=== PATIENT | male | born 2000 | race Caucasian/White ===

== ENCOUNTER → 2024-01-01 06:44 | Outpatient (REF) | payer OTHER, SELFPAY | LOC: MRI 06:44 | PROVIDERS: ATTENDING PHYSICIAN Orthopaedic Surgery; FAMILY PHYSICIAN Family Medicine | DX: M25.562 Pain in left knee (principal); Z98.890 Other specified postprocedural states | CPT/HCPCS: 73721 ==

== ENCOUNTER 2024-02-17 18:01 | Emergency (ER) | payer OTHER, SELFPAY ==
[2024-02-17 18:09] VITALS: BP 135/91
[2024-02-17 18:29] LABS: % Basophils 0.3 % (0-2); % Eosinophils 0.4 % (0-6); % Immature Granulocytes 0.5 % (0-0.5); % Lymphocytes 13.1 % (20.5-51.1); % Monocytes 5.1 % (1.7-9.3); % Neutrophils 80.6 % (42.2-75.2); Absolute Eosinophils 0.1 10^3/uL (0-0.7); Absolute Immature Granulocytes 0.1 10^3/uL (0-0.05); Absolute Lymphocytes 1.7 10^3/uL (1.2-3.4); Absolute Monocytes 0.7 10^3/uL (0.1-0.6); Absolute Neutrophils 10.6 10^3/uL (1.4-6.5); Hematocrit 39.6 % (39.0-52.0); Hemoglobin 13.9 g/dL (13.0-18.0); Mean Corp Hgb Conc. 35.1 g/dL (33.0-37.0); Mean Corpuscular Hgb 29.1 pg (27.0-31.0); Mean Platelet Volume 8.5 fL (7.4-10.4); Nucleated Red Blood Cells % 0 % (-); Platelet Count 302 10^3/uL (130-400); Red Blood Cell Count 4.77 10^6/uL (4.70-6.10); Red Cell Dist. Width 12.9 % (11.5-14.5); Urine Albumin Negative (Neg - Trace); Urine Bilirubin Negative (Negative); Urine Character Clear (Clear); Urine Color Yellow; Urine Glucose Negative (Negative); Urine Ketone Negative (Negative); Urine Leukocyte Negative (Negative); Urine Nitrite Negative (Negative); Urine Occult Blood Negative (Negative); Urine Specific Gravity 1.005 (<1.030); Urine Urobilinogen Negative (Neg - 1+); White Blood Cell Count 13.2 10^3/uL (4.8-10.8)
[2024-02-17 18:48] LABS: ALT (SGPT) 45 U/L (0-50); AST (SGOT) 32 U/L (17-59); Alkaline Phosphatase 100 U/L (38-126); Blood Urea Nitrogen 14 mg/dl (9-20); Calcium 9.6 mg/dl (8.4-10.2); Carbon Dioxide 21 mmol/L (22-30); Chloride 100 mmol/L (98-107); Glucose 108 mg/dl (70-99); Potassium 3.8 mmol/L (3.5-5.1); Sodium 139 mmol/L (135-145); Total Bilirubin 0.5 mg/dl (0.2-1.3); Total Protein 7.9 g/dl (6.3-8.2); eGFR > 60.00
--- NOTE | 2024-02-17 20:06 | ED.GENMED ---
Addendum entered and electronically signed by MICHELLE Salmon 02/18/24 02:57:
Urine Drug positive for Tricyclics.
Original Note:
History of Present Illness
General
Chief Complaint: Anxiety
Source: patient
Exam Limitations: none
Time Seen by Provider: 02/17/24 19:18
History of Present Illness
History of Present Illness:
THis is a 23 year old male that comes in with c/o just feeling like he had an explosion. States that a couple weeks ago he thought he would get a kick and he increased his Wellbutrin. States that he went up to 450mg. States that this was about a
month ago. States that he has now gone down to 400 and then in the past 2-3 weeks he has gone down to 300mg which was his dose that he was to be taking. States that today he felt like his head was going to explode and when he sits and tried to
relax he gets all this energy. States that he was able to push through work and that when he got home he felt like he was going to loose control. States that the water tasted different and this has been happening on and off. States that he did
have a right sided headache over the forehead. Denies any fever, chills, chest pain, SOB, abd pain, nausea, vomiting, diarrhea, dizziness, urinary burning.
Past History
Past History
ED Past Medical History: Psychiatric (ADHD, Anxiety, Depression)
ED Past Surgical History: Orthopedic (Right and left ACL, Left Meniscus) and Other (Hernia repair)
Social History
Tobacco: Non-smoker
Alcohol: Occasional
Personal: Single
Living: with family
Review of Systems
Review of Systems
All Other Systems: ROS reviewed and negative except as documented in HPI and ROS
Constitutional: Reports no symptoms; Denies fever or chills
EENT: Reports no symptoms
Respiratory: Reports no symptoms; Denies cough or trouble breathing
Cardiac: Reports no symptoms; Denies chest pain
ABD/GI: Reports nausea; Denies abdominal pain, vomiting or diarrhea
: Reports no symptoms; Denies dysuria, frequency or urgency
Musculoskeletal: Reports no symptoms
Skin: Reports no symptoms
Neurological: Reports headache; Denies dizzy
Psychiatric: Reports no symptoms
Phy Exam
General Physical Exam
General Presentation: well appearing and no apparent distress
General age: appears stated age
General Skin: warm and dry
General Habitus: normal
General Mental: alert
General Hydration: dry mucous membranes
ENT Exam
ENT Exam: TM's normal, pharynx normal and neck supple
Eye Exam
Eye Exam: EOMI
Cardiovascular Exam
Cardiovascular Exam: regular rate/rhythm, no edema, no murmur and normal peripheral pulses
Pulmonary Exam
Pulmonary Exam: lungs clear, no respiratory distress, no rales, chest non tender, no crackles, no rhonchi, no wheezing and no cough
Gastrointestinal Exam
Gastrointestinal Exam: normal bowel sounds, non tender, soft, no organomegaly, no pulsatile mass and non distended
Musculoskeletal Exam
Musculoskeletal Exam: full ROM and no edema
Skin Exam
Skin Exam: normal color, warm/dry, no rash and no petechia
Psychiatric Exam
Psychiatric Exam: anxious
Course
Orders/Labs/Results
Orders:
Orders
02/17/24 18:16
Urine Drug Abuse Screen Routine
02/17/24 18:23
Complete Blood Count/With Diff Urgent
Comprehensive Metabolic Panel Urgent
Urinalysis Reflex To Culture Urgent
Date Specimen was Collected: 02/17/24
Time Specimen was Collected: 18:17
02/17/24 19:21
Add On- LAB Urgent
Tests Added?: Urine Drug
02/17/24 19:46
0.9% Sodium Chloride 1000 ml [Nss] 1,000 ml IV BOLUS
Abnormal Lab Results
02/17/24
18:23
WBC 13.2 H 10^3/uL
(4.8-10.8)
Abs Immat Gran (auto) 0.1 H 10^3/uL
(0-0.05)
Absolute Neuts (auto) 10.6 H 10^3/uL
(1.4-6.5)
Absolute Monos (auto) 0.7 H 10^3/uL
(0.1-0.6)
Neutrophils % 80.6 H %
(42.2-75.2)
Lymphocytes % 13.1 L %
(20.5-51.1)
Carbon Dioxide 21 L mmol/L
(22-30)
Glucose 108 H mg/dl
(70-99)
02/17/24 18:23
02/17/24 18:23
Leukocytosis, Glucose nonfasting. Urine negative for infection.
Vital Signs
Initial and Last Documented VS:
Initial Vital Signs
Temp Pulse Resp BP Pulse Ox
98.6 F 111 20 135/91 99
02/17/24 18:02/17/24 18:02/17/24 18:02/17/24 18:09 02/17/24 18:09
Last Documented Vital Signs
Temp Pulse Resp BP Pulse Ox
98.6 F 111 20 135/91 99
02/17/24 18:02/17/24 18:02/17/24 18:02/17/24 18:02/17/24 18:09
MDM/Problems Addressed
Differential Diagnosis Includes:
Anxiety
MDM/Problems Addressed:
This is a 23 year old male that comes in with c/o feeling like his head is going to explode. States that he had gone up on his Wellbutrin about a month ago and has decreased it since. States that today he is very anxious, was nasueated, feel that
his water tasted funny and that he was going to have a seizure of which he has no history.
Explained to patient that his Blood work shows that is WBC are slightly elevated and this happens with anxiety. Patient is to follow up with his Psychiatrist for further evaluation of his feelings. Will discharge home.
Chronic conditions affecting care: Psychiatric illness
Acute Exacerbation and/or Progression of Chronic Illness: Psychiatric illness
*Pulse Oximetry
Patient hypoxic: no
*EKG
Interpreted by ED Provider?: NA
Rate: EKG- N/A
*Wrapper Stemmer Operator Interpretation
Rate: Wrapper Stemmer Operator- N/A
*Critical Care Note
Total Time (30-74mins, 75-104mins- exclusive of procedures): Not Applicable
ED Attending Note
-
Portions of this chart may have been created with voice recognition software.� Occasional wrong word or��sound alike� substitutions may have occurred due to the inherent limitations of voice recognition software.
Discharge Plan
Departure
Patient Disposition: Home (Routine Discharge)
Date of Disposition: 02/17/24
Time of Disposition: 20:15
Patient with high blood pressure during this ER visit?: Yes
Condition: Good
Covid-19: Not Applicable
Discharge Problem:
Anxiety
Instructions: Generalized Anxiety Disorder (DC), BLOOD PRESSURE
Prescriptions:
No Action
No Current Medications
amoxicillin 875 MG tablet
875 mg PO Q12H Qty: 14 0RF
jw-qvbrejrb-pyqpnfrryvvg#1-al [Auralgan (w/ acetic acid)] 14 ML drops
14 ml OT QIDPRN PRN (Reason: ear pain) Qty: 1 0RF
jrzklojy-wkyhyjmrb-UP 1 DROP drops,suspension
4 drp otic (ear) TID Qty: 1 0RF
Referrals:
Iván Langley DO [Family Provider] - Call in 1-3 days for appt
Activity Restrictions/Additional Instructions:
As discussed, your blood work shows that your WBC are slightly elevated. This can happen with anxiety. Please follow up with the Psychiatrist and review you feelings as they may want to change or add to your medications. IF YOU HAVE ANY OTHER
CONCERNS PLEASE RETURN TO THE EMERGENCY ROOM.
Interventions
Interventions:
*Risk Screen - Suicide Last Done: 02/17/24 19:37
*General Assessment Last Done: 02/17/24 20:05
*Neglect/Abuse Screening Last Done: 02/17/24 19:37
ED- Fall Risk Assessment Last Done: 02/17/24 19:37
ED-Psychological Assessment Last Done: 02/17/24 19:37
Discharge Date and Time
Print Language: SWEDISH
[2024-02-17 20:17] LABS: Amphetamines Negative (Negative); Barbiturates Negative (Negative); Benzodiazepines Negative (Negative); Buprenorphine Negative (Negative); Cocaine Negative (Negative); Methadone Negative (Negative); Methamphetamines Negative (Negative); Opiates Negative (Negative); Phencyclidine Negative (Negative)
[2024-02-17 20:18] LABS: Marijuana Negative (Negative); Tricyclic Antidepressants Positive (Negative)
== END 2024-02-17 20:22 | disposition home or self-care (01) ==
LOC: EMR 18:01
PROVIDERS: EMERGENCY PHYSICIAN Emergency Medicine; FAMILY PHYSICIAN Family Medicine
DX: F41.9 Anxiety disorder, unspecified (principal)
CPT/HCPCS: 99283; 80053; 80306; 81003; 85025